=== PATIENT | male | born 1985 | race Caucasian/White ===

== ENCOUNTER 2016-12-25 08:42 | Emergency (ER) | payer OTHER | END 2016-12-25 12:33 | disposition home or self-care (01) | LOC: ER1 08:42 | DX: S61.452A Open bite of left hand, initial encounter (principal); Z88.0 Allergy status to penicillin; Z88.2 Allergy status to sulfonamides; F17.200 Nicotine dependence, unspecified, uncomplicated; W54.0XXA Bitten by dog, initial encounter; Y93.01 Activity, walking, marching and hiking; Y92.89 Other specified places as the place of occurrence of the external cause; Z23 Encounter for immunization | CPT/HCPCS: 36415; 73130; 86382; 90471; 90675; 90715; 96372; 99283 ==

== ENCOUNTER 2017-02-14 11:32 | Emergency (ER) | payer OTHER ==
[2017-02-14 12:32] LABS: HEMOGLOBIN 13.6 gm/dl (14.0-17.5); RED BLOOD COUNT 4.75 M/UL (4.20-5.50); WHITE BLOOD COUNT 10.1 K/UL (4.5-11.0)
[2017-02-14 12:55] LABS: BUN/CREATININE RATIO 22 (0-10)
== END 2017-02-14 16:17 | disposition home or self-care (01) ==
LOC: ER1 11:32
PROVIDERS: Emergency Medicine
DX: F15.10 Other stimulant abuse, uncomplicated (principal); Z79.899 Other long term (current) drug therapy
CPT/HCPCS: 36415; 71010; 80053; 80307; 81001; 82550; 82553; 83874; 84484; 85025; 96360; 96361; 99284; G0480

== ENCOUNTER 2021-09-13 19:37 | Emergency (ER) | payer OTHER ==
[~2021-09-13 19:37] MED LIST: AZITHROMYCIN500 MG PO; BUPRENORPHIN-N1 EACH SL; CITALOPRAM HBR20 MG PO; CLINDAMYCIN HC300 MG PO; CYMBALTA 30 MG30 MG PO; DILANTIN100 MG PO; FELDENE10 MG PO; HYDROCODON-ACE1 EAC2 PO; IBU600 MG PO; K-TAB ER20 MEQ PO; KEPPRA 500 MG500 MG PO; LEVETIRACETAM500 M1 PO; LISINOPRIL-HCT1 EAC2 PO; MAPAP500 MG PO; MEDROL4 MG PO; MELOXICAM7.5 MG PO; METHOCARBAMOL500 MG PO; NORFLEX 100 MG100 MG PO; PREDNISONE 50 M50 MG PO; TRAZODONE HCL50 MG PO; VENTOLIN HFA 66.7 GM INH; WAL-ITIN10 MG PO; ZANAFLEX 4 MG TA4 MG PO; ZANTAC150 MG PO; ZYPREXA20 MG PO
[2021-09-13 20:02] LABS: HEMOGLOBIN 13.4 gm/dl (14.0-17.5); RED BLOOD COUNT 4.57 M/UL (4.20-5.50); WHITE BLOOD COUNT 8.9 K/UL (4.5-11.0)
[2021-09-13 20:32] LABS: BUN/CREATININE RATIO 15 (0-10)
[2021-09-13] MEDS ORDERED: KEPPRA500 MG PO (22:43)
== END 2021-09-13 23:30 | disposition home or self-care (01) ==
LOC: ER1 19:37
PROVIDERS: Emergency Medicine
DX: R56.9 Unspecified convulsions (principal); F15.10 Other stimulant abuse, uncomplicated; Z20.822 Contact with and (suspected) exposure to COVID-19
CPT/HCPCS: 70450; 71045; 80053; 80307; 81001; 82550; 82553; 82962; 83605; 84484; 85025; 87040; 93005; 96374; 99284; G0480; J1953; U0002